=== PATIENT | female | born 1950 | race African-American/Black ===

== ENCOUNTER → 2023-04-14 14:52 | Outpatient (REF) | payer OTHER, SELFPAY | LOC: PAVMRI 14:52 | PROVIDERS: ATTENDING PHYSICIAN Internal Medicine | DX: D32.9 Benign neoplasm of meninges, unspecified (principal) | CPT/HCPCS: 70553; A9575 ==

== ENCOUNTER 2023-09-11 14:35 | Emergency (ER) | payer OTHER, SELFPAY ==
[2023-09-11 14:56] VITALS: BP 160/98
[2023-09-11 16:01] VITALS: BMI 37.4
--- NOTE | 2023-09-11 16:47 | ED.GENMED ---
History of Present Illness
<Lubna Soliz PA-C - Last Filed: 09/11/23 19:18>
General
Chief Complaint: Breathing Problem
Source: patient
Time Seen by Provider: 09/11/23 16:24
History of Present Illness
History of Present Illness:
72yoF with a history of multiple prior pulmonary emboli in 1997 no longer on anticoagulation, hypertension, GERD, and chronic back pain presenting with her for evaluation of shortness of breath. She reports waking up from sleep 2 nights ago
with acid reflux and a burning sensation in her throat and chest. This has since resolved but she is now experiencing shortness of breath and wheezing. Her shortness of breath has been constant for the past 2 days. She also reports a central chest
discomfort. She was seen by her PCP this morning and sent to the ED for evaluation. She denies any fevers or chills. She denies any history of heart disease.
Past History
<Lubna Soliz PA-C - Last Filed: 09/11/23 19:18>
Past History
ED Past Medical History: Cancer (Ovarian), GERD, HTN, Hypercholesterolemia and Other (Pulmonary embolism, Hiatal hernia)
ED Past Surgical History: Cholecystectomy and Gynecological (Tubal with reversal)
Social History
Tobacco: Non-smoker
Alcohol: None
Personal:
Living: with family
Phy Exam
<Lubna Soliz PA-C - Last Filed: 09/11/23 19:18>
Physical Exam
Physical Exam:
Expiratory wheezing noted throughout lung [place]. Speaking in full sentences without difficulty.
General Physical Exam
General Presentation: well appearing and no apparent distress
General age: appears stated age
General Skin: warm and dry
General Habitus: normal
General Mental: alert
Cardiovascular Exam
Cardiovascular Exam: regular rate/rhythm, no edema and no murmur
Pulmonary Exam
Pulmonary Exam: no respiratory distress and generalized wheezing
Musculoskeletal Exam
Musculoskeletal Exam: no edema
Skin Exam
Skin Exam: normal color and warm/dry
Psychiatric Exam
Psychiatric Exam: normal mood/affect
Scores
<Lubna Soliz PA-C - Last Filed: 09/11/23 19:18>
Heart Failure Risk
Heart Failure Risk Score: Not Applicable
Course
<Lubna Soliz PA-C - Last Filed: 09/11/23 19:18>
Orders/Labs/Results
Orders:
Orders
09/11/23 14:45
EKG [Electrocardiogram (*1)] Urgent
Reason for Study: Chest Pain
EKG- Treatment ONCE
09/11/23 15:03
CMP [Comprehensive Metabolic Panel] Urgent
Complete Blood Count/With Diff Urgent
NT-proBNP Urgent
Troponin I Urgent
09/11/23 16:42
COVID-19 Antigen Urgent
Source: Nasal Swab
D-Dimer Urgent
Ipratropium/Albuterol Sulfate [Duoneb] 3 ml INH R NOW STA
09/11/23 16:43
CR Chest - 2 Views Urgent
Comment:
Reason For Exam: SOB
09/11/23 18:48
Prednisone [Deltasone] 50 mg PO NOW STA
Vital Signs
Initial and Last Documented VS:
Initial Vital Signs
Temp Pulse Resp BP Pulse Ox
98.3 F 95 18 160/98 99
09/11/23 14:56 09/11/23 14:56 09/11/23 14:56 09/11/23 14:56 09/11/23 14:56
Last Documented Vital Signs
Temp Pulse Resp BP Pulse Ox
98.3 F 95 18 160/98 96
09/11/23 14:56 09/11/23 14:56 09/11/23 14:56 09/11/23 14:56 09/11/23 18:22
<Chandra Alanis DO - Last Filed: 09/11/23 19:48>
Orders/Labs/Results
Orders:
Orders
09/11/23 14:45
EKG [Electrocardiogram (*1)] Urgent
Reason for Study: Chest Pain
EKG- Treatment ONCE
09/11/23 15:03
CMP [Comprehensive Metabolic Panel] Urgent
Complete Blood Count/With Diff Urgent
NT-proBNP Urgent
Troponin I Urgent
09/11/23 16:42
COVID-19 Antigen Urgent
Source: Nasal Swab
D-Dimer Urgent
Ipratropium/Albuterol Sulfate [Duoneb] 3 ml INH R NOW STA
09/11/23 16:43
CR Chest - 2 Views Urgent
Comment:
Reason For Exam: SOB
09/11/23 18:48
Prednisone [Deltasone] 50 mg PO NOW STA
Vital Signs
Initial and Last Documented VS:
Initial Vital Signs
Temp Pulse Resp BP Pulse Ox
98.3 F 95 18 160/98 99
09/11/23 14:56 09/11/23 14:56 09/11/23 14:56 09/11/23 14:56 09/11/23 14:56
Last Documented Vital Signs
Temp Pulse Resp BP Pulse Ox
98.3 F 95 18 160/98 96
09/11/23 14:56 09/11/23 14:56 09/11/23 14:56 09/11/23 14:56 09/11/23 18:22
<Lubna Soliz PA-C - Last Filed: 09/11/23 19:18>
MDM/Problems Addressed
Differential Diagnosis Includes:
72yoF here with SOB and wheezing x several days. Started after she woke up with GERD symptoms. Sent here by PCP. Remote hx of PE 20 years ago which was attributed to ovarian cancer. She is afebrile and hemodynamically stable. Oxygen saturation 99%
on room air. Diffuse expiratory wheezes noted on lung exam. No conversational dyspnea. No peripheral edema. Differential diagnosis includes but is not limited to: Viral syndrome, bronchospasm, pneumonia, less likely ACS, less likely PE
Initial ED plan: Check cardiac labs, D-dimer, EKG, and chest x-ray. DuoNeb and reassess.
<Lubna Soliz PA-C - Last Filed: 09/11/23 19:18>
*EKG
EKG Intrepretation Date: 09/11/23
Heart Rate: 93
Rate: normal
Rhythm: sinus
Julia[place]: left axis deviation
Interval: normal interval
QRS Pattern: normal QRS
Ischemia: no ischemia
*Critical Care Note
Total Time (30-74mins, 75-104mins- exclusive of procedures): Not Applicable
<Lubna Soliz PA-C - Last Filed: 09/11/23 19:18>
Update Note
Update Note:
EKG shows normal sinus rhythm without ischemic changes. Chest x-ray appears clear without infiltrates. Unfortunately, labs/IV unable to be obtained despite multiple attempts by nursing staff, IV team, and attending. Patient is now refusing
further needlesticks. Oxygen saturation 100% on reassessment. Overall very low clinical suspicion for ACS or PE. Will discharge with a nebulizer machine, albuterol, and prednisone. Advised patient to follow-up closely with her PCP within the
next 48 hours and return to the ED immediately with any new or worsening symptoms. Patient is in agreement with this plan. She was discharged in stable condition
ED Attending Note
<Lubna Soliz PA-C - Last Filed: 09/11/23 19:18>
-
Portions of this chart may have been created with voice recognition software.� Occasional wrong word or��sound alike� substitutions may have occurred due to the inherent limitations of voice recognition software.
<Chandra Alanis DO - Last Filed: 09/11/23 19:48>
ED Attending Note
Patient seen and examined by attending physician: Yes
I performed a history and physical exam of patient and discussed management with resident, I reviewed resident's note and agree with documented findings and plan of care.: Yes
ED Attending Note:
I reviewed and agree with history plan by Lubna Soliz. My exam revealed 72-year-old female in no acute distress. Initially wheezing, improved after DuoNeb. Do not suspect pneumonia or PE. Suspect bronchitis bronchospastic. Stable for
discharge. Unable to get labs due to difficult IV access .
Discharge Plan
Departure
Patient Disposition: Home (Routine Discharge)
Date of Disposition: 09/11/23
Time of Disposition: 18:50
Patient with high blood pressure during this ER visit?: Yes
Discharge Problem:
Bronchospasm, Shortness of breath
Instructions: Wheezing
Prescriptions:
New
albuterol sulfate 2.5 mg /3 mL (0.083 %) solution for nebulization
2.5 mg inhalation QID PRN (Reason: shortness of breath or wheezing) Qty: 90 0RF
prednisone 50 mg tablet
50 mg PO DAILY Qty: 4 0RF
Rx Instructions:
Next dose is 09/12/23. First dose given in ED
No Action
doxycycline hyclate 100 MG capsule
100 mg PO Q12 Qty: 14 0RF
prednisone 20 MG tablet
20 mg PO DAILY Qty: 8 0RF
Rx Instructions:
two tablets a day for 4 days
albuterol sulfate [Proventil HFA] 90 MCG/PUFF HFA aerosol inhaler
1 puff inhalation Q4HPRN PRN (Reason: shortness of breath) Qty: 1 0RF
prednisone 10 mg tablet
10 mg PO DAILY Qty: 2 0RF
Referrals:
Mike Jerome MD [Family Provider] -
Activity Restrictions/Additional Instructions:
Take prednisone as prescribed. Use inhaler and nebulizer treatments as needed for wheezing/tightness.
Please follow-up with your family doctor in the next 2 days. Return to the ER with any worsening symptoms or if you do not improve.
Interventions
Interventions:
*Risk Screen - Suicide Last Done: 09/11/23 16:02
*General Assessment Last Done: 09/11/23 14:56
*Neglect/Abuse Screening Last Done: 09/11/23 16:02
ED- Fall Risk Assessment Last Done: 09/11/23 16:12
*ED COVID-19 Vaccine History Last Done: 09/11/23 14:56
*Nursing Disposition Last Done: 09/11/23 19:27
ED- Cardiac Assessment Last Done: 09/11/23 16:13
ED- Pulmonary Assessment Last Done: 09/11/23 18:22
Discharge Date and Time
Discharge Date/Time: 09/11/23 19:28
Print Language: NORWEGI[place]
--- NOTE | 2023-09-11 17:47 | VATNOTE ---
unable to thread wire for midline bilaterally in multiple veins. ER Nurse Doris barber.
[2023-09-11] MEDS: DUONEB 3 ML INH (17:50)
[2023-09-11] MEDS: DELTASONE 50 MG PO (19:12)
== END 2023-09-11 19:28 | disposition home or self-care (01) ==
LOC: EMR 14:35
PROVIDERS: EMERGENCY PHYSICIAN Emergency Medicine; FAMILY PHYSICIAN Internal Medicine
DX: J98.01 Acute bronchospasm (principal); R06.02 Shortness of breath; I10 Essential (primary) hypertension; K21.9 Gastro-esophageal reflux disease without esophagitis; E78.00 Pure hypercholesterolemia, unspecified; Z85.43 Personal history of malignant neoplasm of ovary; Z86.711 Personal history of pulmonary embolism; Z90.49 Acquired absence of other specified parts of digestive tract
CPT/HCPCS: 99283; 94640; 71046; 93005

== ENCOUNTER → 2023-10-21 15:14 | Outpatient (REF) | payer OTHER, SELFPAY | LOC: WDC 15:14 | PROVIDERS: ATTENDING PHYSICIAN Internal Medicine | DX: Z88.9 Allergy status to unspecified drugs, medicaments and biological substances (principal); Z12.31 Encounter for screening mammogram for malignant neoplasm of breast | CPT/HCPCS: 77063; 77067; 93306 ==

== ENCOUNTER → 2024-09-13 09:16 | Outpatient (REF) | payer OTHER, SELFPAY | LOC: HWRAD 09:16 | DX: M54.50 Low back pain, unspecified (principal); Z98.890 Other specified postprocedural states; G89.29 Other chronic pain | CPT/HCPCS: 72110 ==

== ENCOUNTER → 2024-10-02 08:30 | Outpatient (REF) | payer OTHER, SELFPAY | LOC: MRI 3T 08:30 | DX: M54.50 Low back pain, unspecified (principal); Z98.890 Other specified postprocedural states; G89.29 Other chronic pain | CPT/HCPCS: 72148 ==